=== PATIENT | female | born 1955 | race Caucasian/White ===

== ENCOUNTER 2020-10-09 15:13 | Emergency (ER) | payer OTHER, SELFPAY ==
--- NOTE | ~2020-10-09 | XR_ITS ---
EXAMINATION: XR ribs LT 2V w CXR 2V INDICATION: Left chest pain TECHNIQUE: PA and lateral views of the chest and 3 views of the left ribs were obtained. COMPARISON: 07/24/2014 FINDINGS: Calcified pulmonary nodules and calcified left hilar and mediastinal lymph nodes are consis tent with old granulomatous disease. The lungs are free of acute opacities. There is no pleural effus ion or pneumothorax. Moderate thoracic spondylosis is noted. The cardiomediastinal silhouette is norm al. No displaced rib fracture is identified. Punctate calcifications in the left upper quadrant likel y reflect old granulomatous disease of the spleen. IMPRESSION: 1. No acute cardiopulmonary abnormality or evidence of displaced rib fracture. Reviewed, dictated and finalized at location A. 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
[2020-10-09 15:39] VITALS: BP 136/74; PULSE 55; RESP 20; TEMP 36.7; O2SAT 99
[2020-10-09] MEDS: KETOROLAC (*BKC) 60 MG/2 ML VIAL IM (16:03)
--- NOTE | 2020-10-09 16:52 | ED.GENADULT ---
HPI - General Adult General Chief complaint: Unspecified Stated complaint: abdominal pain after fall Time Seen by Provider: 10/09/20 15:45 Source: patient Mode of arrival: ambulatory Limitations: no limitations History of Present Illness HPI narrative: Patient states she has had pain in her left side, under her breast since she fell a few days ago. This has been worse when she takes a deep breath. She comes in because she is tender to touch at that area, moderately severe pain that and is ongoing, so she wishes to be evaluated for this. Radiation: non-radiation Quality: stabbing Pain Consistency: constant Relieving factors: none Exacerbating factors: none Related Data Home Medications Medication Instructions Recorded Confirmed aspirin 325 mg PO HS 10/09/20 10/09/20 calcium 1,200 mg PO DAILY 10/09/20 10/09/20 citalopram [Celexa] 20 mg PO HS 10/09/20 10/09/20 diphenhydramine HCl [Allergy 25 mg PO BID 10/09/20 10/09/20 Medicine] insulin glargine [Lantus Solostar 60 unit SUBCUT BID 10/09/20 10/09/20 U-100 Insulin] levothyroxine [Synthroid] 137 mcg PO DAILY 10/09/20 10/09/20 lisinopril 5 mg PO HS 10/09/20 10/09/20 metformin 500 mg PO DAILY 10/09/20 10/09/20 metoprolol tartrate 25 mg PO BID 10/09/20 10/09/20 omeprazole 20 mg PO BID 10/09/20 10/09/20 simvastatin 40 mg PO HS 10/09/20 10/09/20 venlafaxine [Effexor XR] 150 mg PO HS 10/09/20 10/09/20 Allergies Allergy/AdvReac Type Severity Reaction Status Date / Time Sulfa (Sulfonamide Allergy Hives Verified 10/09/20 15:51 Antibiotics) Review of Systems Constitutional: Constitutional: Reports no additional constitutional complaints Eyes: Eyes: Reports no additional eye complaints ENT: Reports system reviewed and no additional complaints, except as documented Cardiovascular: Cardiovascular: Reports no additional cardiovascular complaints Respiratory: Respiratory: Reports no additional respiratory complaints Gastrointestinal: Gastrointestinal: Reports no additional gastrointestinal complaints Genitourinary: Genitourinary: Reports no additional female genitourinary complaints Musculoskeletal: Musculoskeletal: Reports no additional musculoskeletal complaints Integumentary/Breasts: Skin/Breast: Reports system reviewed and no additional complaints, except as docu Neurologic: Reports system reviewed and no additional complaints, except as documented Psychiatric: Psychiatric: Reports no additional psychiatric complaints Endocrine: Endocrine: Reports no additional endocrine complaints Hematologic/Lymphatic: Hematologic/Lymphatic: Reports no additional hematologic/lymphatic complaints Allergic/Immunologic: Allergic/Immunologic: Reports no additional allergic/immunologic complaints PMFSH Social History Social History Smoking status: Never smoker Gender identity (if verbalized by the patient): Female Exam Const: General: no acute distress Nutritional Appearance: well nourished and obese Orientation/consciousness: patient oriented x3 HENMT: Head: normal to inspection Face and sinus: normal facial exam Eyes: Conjunctivae: conjunctivae normal Neck: Neck: normal visual inspection Chest: Chest palpation & inspection: normal inspection of the chest Other: Left chest area where she complains of pain is tender to touch Resp: Effort & Inspection: normal respiratory effort Auscultation: clear to auscultation bilaterally Cardio: Rate: regular rate Rhythm: regular rhythm GI: GI Palp: Yes Soft to palpation Auscultation: normal bowel sounds : External Female Exam: normal external appearance Skin: General skin exam: normal color Neuro: General: patient oriented x3 and moves all extremities Speech: normal speech Extrem: General: normal to inspection Psych: Appearance: grossly normal Mental Status: mental status grossly normal Thought content: Yes Normal thought content present Cours
[2020-10-09 17:25] VITALS: PULSE 55; RESP 20; O2SAT 98
== END 2020-10-09 17:27 | disposition home or self-care (01) ==
PROVIDERS: Emergency Provider Emergency Medicine; PCP Internal Medicine Infectious Disease
DX: R07.89 Other chest pain (principal)
CPT/HCPCS: 71046; 71100; 96372; 99283; J1885

== ENCOUNTER 2021-11-20 11:33 | Outpatient (CLI) | payer OTHER, MEDICAID, SELFPAY ==
--- NOTE | 2021-11-20 11:43 | ECG_ITS ---
Measurements Intervals [place] Rate: 47 P: 32 ND: 169 QRS: -26 QRSD: 78 T: 64 QT: 447 QTc: 399 Interpretive Statements SINUS BRADYCARDIA EARLY PRECORDIAL R/S TRANSITION MINIMAL Q WAVES- HIGH LATERAL LEADS BASELINE WANDER- I, II, III ABNORMAL ECG Electronically Signed On 11-20-2021 12:48:46 LICENSED CLUB MANAGER by Jason Hughes D.O.
== END 2021-11-20 11:34 | disposition home or self-care (01) ==
PROVIDERS: PCP Internal Medicine Infectious Disease; Visit Provider Nurse Practitioner
DX: E11.9 Type 2 diabetes mellitus without complications (principal); K43.2 Incisional hernia without obstruction or gangrene; E66.9 Obesity, unspecified; R94.31 Abnormal electrocardiogram [ECG] [EKG]
CPT/HCPCS: 93005

== ENCOUNTER 2022-01-04 09:20 | Outpatient (CLI) | payer OTHER, MEDICAID, SELFPAY ==
[2022-01-04 09:52] LABS: Anion Gap 6 mmol/L (8-16); Blood Urea Nitrogen 17 mg/dL (7-17); Calcium 9.3 mg/dL (8.4-10.2); Carbon Dioxide 28 mmol/L (22-30); Chloride 102 mmol/L (98-107); Estimated Glomerular Filt Rate > 60; Glucose 137 mg/dL (65-110); Potassium 4.8 mmol/L (3.4-5.0); Sodium 136 mmol/L (137-145)
== END 2022-01-04 09:21 | disposition home or self-care (01) ==
LOC: ANHSURGERY 09:26
PROVIDERS: Anesthesiology; PCP Internal Medicine Infectious Disease; Visit Provider Surgery
DX: Z01.812 Encounter for preprocedural laboratory examination (principal); E11.9 Type 2 diabetes mellitus without complications
CPT/HCPCS: 36415; 80048

== ENCOUNTER 2022-01-08 00:32 | Day surgery (SDC) | payer OTHER, MEDICAID, SELFPAY ==
[2022-01-02 12:37] VITALS: BMI 36.7
--- NOTE | 2022-01-02 12:56 | PC.NURSE ---
Report to the Outpatient Waiting Room, entrance under the green pavilion located off [facility], at time __8:00AM on date __01/08/22 . OR Time: __10:00AM . - You and your visitor will be asked a series of questions to screen for COVID 19 for your protection. - A mask is required within the hospital. Preoperative COVID Testing Requirements: No COVID Test needed if: (proof is required; if not received patient will have Rapid Test prior to entry) - Patient has received COVID Vaccine at least 14 days prior to procedure date or - Patient has positive COVID test result within last 90 days of surgery date. COVID Test needed if above criteria is not met If not COVID vaccinated a COVID test must be conducted within 72 hours of surgery and patient is asked to isolate self from time of testing until procedure. You will go to the [facility] for your COVID testing. The [facility] is located at the corner of [address] [facility]. You will only be called if COVID results are positive and your surgeon may reschedule your elective surgery date. Patients may have clear liquids (water, carbonated beverages, clear teas, apple juice) until 3 hours prior to surgery with a maximum of 20 ounces. - No food from midnight until time of surgery - Infants may have breast milk until 4 hours before surgery, infant formula 6 hours prior to surgery. - Children will be allowed to drink immediately following surgery. If applicable, please bring a bottle or sippy cup to assist with drinking. Juice, water, soda, and popsicles are readily available. For infants on formula, please bring formula the day of surgery. Pacifiers are allowed. Take the following medications with a SIP of water the morning of surgery: ___LEVOTHYROXINE, METOPROLOL Medications to discontinue per physician DECREASE 325MG ASPIRIN TO 81MG 5 DAYS PRE-OP(01/03/22); HOLD VITAMINS/SUPPLEMENTS 3 DAYS PRE-OP (01/05) Date to take last dose Please no make-up, nail mosotho, hairspray, perfume, deodorant, or body powder the day of surgery. No jewelry (including any body piercings) or valuables the day of surgery, leave them at home. Please take a shower or bath the night before, or the morning of, surgery with an antibacterial soap. Wear comfortable, loose fitting clothing. Children are encouraged to wear pajamas. - Jewelry must be removed prior to entering the operating room. Rings and piercings that are not removed may be cut off. - The hospital will not accept responsibility for valuables. - Please leave all valuables, including medications, at home the day of surgery. HIBICLENS SHOWER MORNING OF SURGERY PER DR FARNSWORTH If you are going home after surgery, a licensed food mobile driver must drive you home. - NO public transportation without another adult. - We recommend that an adult stay with you for 24 hours following discharge. - We also recommend that you do not drive, make important decision, drink alcoholic beverages, or take any drugs that were not prescribed by your health care provider for at least 24 hours after your discharge time. For Pediatric surgeries, we recommend two adults accompany the child home (only one inside the building at this time). One visitor will be allowed to accompany the patient into the hospital. Patients visitor will be instructed to remain with patient at all times or leave the building. We will allow the visitor to come back to the postoperative area when patient is ready. Follow any additional instructions given to you from your surgeon. Telephone instructions given to ___PATIENT and asked if any additional questions and then verbalized understanding. Patient advised to call surgeon office or pre surgery nurse liaison [phone] if any additional questions.
--- NOTE | 2022-01-05 10:17 | WPDANESEPPF ---
Anes - Initial Pre Proc Eval Procedure: Operation Date: 01/08/22 10:30 Proposed Procedures p Laparoscopic Repair Ventral Incisional Hernia with Mesh, Possible Open - Ulises Arce MD Date/Time: 01/05/22 10:17 Surgeon: Ulises Arce MD Pre Op Diagnosis: ventral incisional hernia Patient Data Age: 66 Gender: F Height: 1.6 m Weight: 94 kg Allergies Allergy/AdvReac Type Severity Reaction Status Date / Time Sulfa (Sulfonamide Allergy Hives Verified 01/08/22 10:22 Antibiotics) codeine AdvReac Intermediate Nausea Verified 01/08/22 10:22 Home Medications Medication Instructions Recorded Confirmed Type aspirin 325 mg PO HS 10/09/20 01/08/22 History calcium 1,200 mg PO DAILY 10/09/20 01/08/22 History citalopram [Celexa] 20 mg PO HS 10/09/20 01/08/22 History diphenhydramine HCl [Allergy 25 mg PO BID 10/09/20 01/08/22 History Medicine] lisinopril 5 mg PO HS 10/09/20 01/08/22 History metformin 500 mg PO BID 10/09/20 01/08/22 History metoprolol tartrate 25 mg PO BID 10/09/20 01/08/22 History omeprazole 20 mg PO BID 10/09/20 01/08/22 History simvastatin 40 mg PO HS 10/09/20 01/08/22 History venlafaxine [Effexor XR] 150 mg PO HS 10/09/20 01/08/22 History aspirin [Aspir-81] 81 mg PO DAILY 01/02/22 01/08/22 History insulin glargine-lixisenatide 60 ml SUBCUT QAM 01/02/22 01/08/22 History [Soliqua 100/33] levothyroxine [Synthroid] 125 mcg PO QAM 01/02/22 01/08/22 History Patient hx anesthesia problems: other (history of difficult intubation) Family hx anesthesia problems: none Results Review: All pre-operative results and documents have been reviewed as part of the pre-operative evaluation. [facility] Past Medical History Medical History (Updated 01/05/22 @ 10:18 by Mmeo Bourne DO) Depression Diabetes type 2, controlled Heart attack Hiatal hernia High cholesterol Hypertension CANDICE (obstructive sleep apnea) Thyroid condition Surgical History Surgical History H/O section H/O dilation and curettage H/O hernia repair H/O rotator cuff surgery History of cholecystectomy History of foot surgery History of tonsillectomy Hx of appendectomy Status post osteotomy Social History Social History Smoking status: Never smoker Alcohol intake: current Alcohol use details: RARELY Substance use: never Living arrangements: with family Additional living arrangements comments: SPOUSE Gender identity (if verbalized by the patient): Female Spiritual care concerns: No Anes - Eval Final PreProcedure Day of Procedure 01/05/22 10:17 Patient weight: obese Heart: regular rate and rhythm Lungs: clear to auscultation and normal air movement Airway: Mallampati scale class III and other (history of difficult intubation) Neurological: alert and oriented Last oral intake: >/= 8 hours ASA classification: III Emergent: no Anesthetic plan: proceed Anesthesia type and monitoring: general ETT and standard monitoring Results Review: All pre-operative results and documents have been reviewed as part of the pre-operative evaluation. Informed Consent: The patient's anesthetic plan and its attendant risks and benefits were discussed with the patient/family/POA. Questions were solicited and answers provided to the satisfaction of the patient/family/POA.
--- NOTE | 2022-01-07 19:11 | PM.HPGS ---
History of Present Illness History of Present Illness Consent: Risks, benefits, and alternatives of a laparoscopic repair of a ventral incisional hernia with mesh have been discussed and questions answered. Patient agrees to proceed with procedure. Chief complaint: ventral incisional hernia Narrative: Radha Zafar is a 66 year old white female that presented recently to the office at the request of Dr Islas for an evaluation of a abdominal hernia. The patient reports that she has known she has had a hernia for years. She reports she had a hernia repair in 2017 but the current concerning hernia was not repaired because it was small and asymptomatic. She reports that the larger hernia repaired in 2017 she believes was just repaired with sutures and not mesh. Prior to having the 2017 hernia repair she had a laparoscopic cholecystectomy completed in [facility]. She believes that surgery was 5-10 years ago. She reports that she also has had her appendix removed when she was in 8th grade. She believes this was ruptured. She also reports she had a with a vertical midline incision done > 30 years ago. Patient reports that she has been having pain at the site of her current upper abd. hernia and has been nauseous recently and just sick to her stomach frequently. She believes these symptoms are due to the hernia. Patient underwent a CT scan of the abdomen and pelvis with contrast on 11/09/21 when at the ED at [facility] in [place] that showed a 4.1 cm x 2.1 cm midline ventral hernia in the upper abdomen containing fat. There was noted to be some inflammatory stranding of the fat within the hernia suggesting edema and therefore incarceration of the fat. Review of Systems Review of Systems: Const All systems reviewed & are unremarkable except as noted in HPI and below Reports no additional complaints, Denies frequent falls, Denies headache(s) and Reports other (no recent weight change, no fever) Eyes Denies blurry vision, Denies itchy eyes, Denies photophobia and Denies spots in vision ENT Reports Normal hearing present, Denies headache(s), Denies hoarseness, Denies lip swelling and Denies sore throat Card Denies chest pain at rest, Denies irregular heart rhythm and Denies dyspnea Resp Denies chest congestion, Denies cough and Denies dyspnea GI Reports abdominal pain, Reports heartburn and Reports nausea, Reports multiple previous abdominal surgeries. Musc Reports other (arthritis) Skin/Breast Denies new lesions, Denies rash and Denies wounds Neuro Reports Normal hearing present, Denies abnormal gait, Denies confusion, Denies frequent falls, Denies headache(s), Denies convulsions and Denies seizure-like activity Psych Denies confusion and Denies depression Endo Denies cold intolerance and Denies heat intolerance Lee/Lymph Denies easy bleeding, Denies easy bruising and Denies lymphadenopathy Aller/Immun Denies itchy eyes and Denies lip swelling PMFSH Past Medical History Medical History (Updated 01/05/22 @ 10:18 by Memo Bourne DO) Depression Diabetes type 2, controlled Heart attack Hiatal hernia High cholesterol Hypertension CANDICE (obstructive sleep apnea) Thyroid condition Surgical History Surgical History H/O section H/O dilation and curettage H/O hernia repair H/O rotator cuff surgery History of cholecystectomy History of foot surgery History of tonsillectomy Hx of appendectomy Status post osteotomy Social History Social History Smoking status: Never smoker Alcohol intake: current Alcohol use details: RARELY Substance use: never Living arrangements: with family Additional living arrangements comments: SPOUSE Gender identity (if verbalized by the patient): Female Spiritual care concerns: No Meds Home Medications and Allergies Home Medications Me
[2022-01-08] VITALS (20 sets, daily range): BP systolic 115–153; BP diastolic 47–90; PULSE 55–95; RESP 16–20; TEMP 36.2–37.7; O2SAT 92–99; BMI 35.6
[2022-01-08] MEDS: ACETAMINOPHEN 500 MG TABLET 1000 MG PO (10:13)
[2022-01-08 10:14] LABS: Glucose Point of Care 81 mg/dl (65-105)
[2022-01-08] MEDS: LACTATED RINGERS 1,000 ML 30 ML IV CONT ×3 (10:16→15:31)
[2022-01-08] MEDS: KETOROLAC 15 MG/ML VIAL (*BKC) IV PUSH (10:16)
--- NOTE | 2022-01-08 11:17 | WPDHPUPDATE1 ---
History and Physical Update Update Date/Time: 01/08/22 11:17 History and Physical has been reviewed, including an updated exam of the patient. There are NO changes in the patient's condition. Risks, benefits, and alternatives have been discussed and questions answered. Patient agrees to proceed with procedure.
--- NOTE | 2022-01-08 11:37 | SUR.PREOP ---
OFFERED RESTROOM TO PT, SHE REFUSED. GABRIELA MACHINE SEWER NOTIFIED.
[2022-01-08] MEDS: ceFAZolin 2 GM/D5W 50 ML 2 GM/50 ML BAG IVPB (11:42)
[2022-01-08] MEDS: BUPIVACAINE/EPINEPHRINE 0.25% 10 ML VIAL 30 ML INFILTRATE (12:18)
[2022-01-08 13:47] LABS: Glucose Point of Care 163 mg/dl (65-105)
--- NOTE | 2022-01-08 14:15 | W.PM.PROC2 ---
Procedure Note - Detailed Date of Procedure 01/08/22 Pre-op Diagnosis ventral incisional hernia upper mid abdomen Post-op Diagnosis Same Procedure Performed Laparoscopic ventral incisionall hernia repair with mesh Surgeon Ulises Arce MD [employer] HALE, OR design assistant Anesthesia General Indications Patient having increasing abdominal pain in the epigastrium where she has a enlarging bulge. Findings There was an approximately 2.5 x 3.5 cm fascial defect half-way between the umbilicus and the xiphoid in the upper mid abdomen. Description of Procedure DESCRIPTION OF PROCEDURE: The patient was placed in the supine position on the operative table and after induction of adequate general endotracheal anesthesia by Michael Anesthesia, the entire abdomen was prepped and draped in usual sterile fashion and the head placed slightly up. An Ioban drape was placed over the exposed part of the abdomen and used to prevent contact of the mesh with the skin during this clean case. A time-out was performed with the surgery team confirming patient and site of surgery. Following this, local anesthetic was placed in a spot selected about two finger-breadths below the costal margin on the left and a small incision made after instilling the local anesthetic using 0.25% Marcaine with epinephrine. Following this, a Veress needle technique using the water drop test was completed. Using 2 towel clips on the skin, I carefully elevated the skin and then passed the Veress needle into the abdomen and we could see that the saline dropped through the Veress needle easily. CO2 gas was connected and the abdomen was insufflated to 15 mm Hg pressure with CO2 gas. Following this, the 0 degree 5 mm laparoscope was placed inside a 5 mm trocar, which was carefully twisted into the abdomen without difficulty, seeing a open pneumoperitoneum as we entered. Then, the trocar was removed, the sleeve confirmed to be nicely within the abdomen, and we carefully inspected the anterior abdomen. Careful inspection of the abdomen revealed an inability to see the inguinal areas because of the patients size and previous lower abdominal surgery and the resultant adhesions. A defect in the fascia under the epigastric port site scar was not readily visible because of the incarceration of either omental or epiploic fat off the transverse colon that appeared to be going up into the about 3 cm in size defect. After placing a 12 mm port in the left lower quadrant under direct vision with the laparoscope, we were able to dissect and expose an estimated 3 cm defect that was confirmed to be pretty much directly under the scar form one of her prevouus port sites. There was some incarceration of omentum or a small piece of appendices epiploica off the transverse colon was up in the hernia defect. This was pulled back into the abdomen as we did the dissection. There were also some omental adhesions to the underside of a piece of mesh that was lower in the central abdomen under the umbilicus and under her lower midline scar. There was also some fat along the midline extending up to the Falciform ligament. I took this down and removed this preperitoneal fat from around the now visible fascial defect. We had a little bleeding from this, and lost about 5 mL of blood during the laparoscopic dissection. Following this, we carefully planned by measuring the defect. Our mesh, a circular 11 cm piece of Venta-lite mesh was chosen, so that we would have 4 cm of overlap in all directions over the circular upper midline fascial defect. Following this, the Ventra-lite Echo II mesh hernia system was rolled and this was inserted through the LLQ 12 mm port after rolling it to protect the absorbable covering on the downside of the mesh. I then used the suture passer after making a small opening in the epigastric skin directly over the above described fascial defect with an 11 blade knife after placing local an
[2022-01-08] MEDS: fentaNYL CITRATE INJ (*CRX) 100 MCG/2 ML VIAL 25 MCG IV PUSH ×3 (15:25→15:35)
--- NOTE | 2022-01-08 15:53 | SUR.PHASEII ---
PT PUSHED CALL LIGHT, CAME IN ROOM AND SAW PT SHAKING ABNORMALLY. PT ANSWERED QUESTIONS APPROPRIATELY AND KNEW HER WHERE ABOUTS. ANESTESIA CAME TO EVALUATE. RECOMENDED SMALL 12.5 DOSES OF FENTANYL AND DISTRACTION THERAPY.
[2022-01-08 16:18] LABS: Glucose Point of Care 204 mg/dl (65-105)
[2022-01-08] MEDS: HYDROcodone/acetaminophen (*CRX) 7.5-325 MG TABLET 1 TAB PO (18:05)
--- NOTE | 2022-01-08 18:52 | ADMGEN ---
This patient, Radha Zafar, was admitted to Medical Room 344-01. Patient/family oriented to hospital policies and general routines including ID bracelet, bed and alarms, visiting hours, pain management, procedures, bathroom and other care routines, personal items, smoking policy, room service/diet, and visiting hours. Information on how to activate the Rapid Response Team has been discussed. Patient/Family are encouraged to report perceived risks to care and to ask questions if they do not understand what they are told or what they should do.
[2022-01-08] MEDS: LACTATED RINGERS 1,000 ML 100 ML IV CONT (18:55)
[2022-01-08 19:34] LABS: Basophils Percent Auto 0.2 % (0.2-1.2); Eosinophils Percent Auto 0.1 % (0-4.4); Hematocrit 36.3 % (37.0-47.0); Hemoglobin 11.4 g/dL (12.0-15.0); Immature Granulocyte Absolute 0.04 K/mm3 (0.00-0.031); Immature Granulocyte Percent A 0.4 % (0-0.5); Lymphocytes Absolute Auto 0.53 K/mm3 (0.9-3.2); Lymphocytes Percent Auto 5.1 % (18.3-44.2); Mean Corpuscular HGB Conc 31.4 g/dl (32-36); Mean Corpuscular Hemoglobin 26.4 pg (26-34); Mean Platelet Volume 11.2 fl (7.4-10.4); Monocytes Absolute Auto 0.3 K/mm3 (0.1-0.6); Monocytes Percent Auto 2.6 % (2.6-8.5); Neutrophils Absolute Auto 9.5 K/mm3 (1.3-6.7); Neutrophils Percent Auto 91.6 % (45.5-73.1); Platelet Count Result 287 k/mm3 (150-375); Red Blood Count 4.32 M/mm3 (4.2-5.4); Red Cell Distribution Width 14.6 % (11.5-14.5); White Blood Count 10.4 K/mm3 (4.5-10.0)
[2022-01-08 19:46] LABS: Alanine Aminotransferase 23 U/L (4-35); Albumin Level 3.8 g/dL (3.5-5.1); Alkaline Phosphatase 110 U/L (38-126); Anion Gap 7 mmol/L (8-16); Aspartate Amino Transferase 34 U/L (14-36); Bilirubin,Total 0.4 mg/dL (0.2-1.3); Blood Urea Nitrogen 16 mg/dL (7-17); Calcium 8.8 mg/dL (8.4-10.2); Carbon Dioxide 27 mmol/L (22-30); Chloride 100 mmol/L (98-107); Estimated CRCL calculation 74 ml/min; Estimated Glomerular Filt Rate > 60; Glucose 251 mg/dL (65-110); Potassium 5.3 mmol/L (3.4-5.0); Sodium 134 mmol/L (137-145)
[2022-01-08 19:48] LABS: Glucose Point of Care 257 mg/dl (65-105)
--- NOTE | 2022-01-08 20:38 | PM.IMHP ---
H&P: HPI History of Present Illness Date/Time: 01/08/22 20:38 [facility] Past Medical History Medical History Depression Diabetes type 2, controlled Heart attack Hiatal hernia High cholesterol Hypertension CANDICE (obstructive sleep apnea) Thyroid condition Surgical History Surgical History H/O section H/O dilation and curettage H/O hernia repair H/O rotator cuff surgery History of cholecystectomy History of foot surgery History of tonsillectomy Hx of appendectomy Status post osteotomy Social History Social History Smoking status: Never smoker Alcohol intake: current Alcohol use details: RARELY Substance use: never Substance use type: does not use Living arrangements: with family Additional living arrangements comments: SPOUSE Gender identity (if verbalized by the patient): Female Spiritual care concerns: No Meds Home Medications and Allergies Home Medications Medication Instructions Recorded Confirmed Type aspirin 325 mg PO HS 10/09/20 01/08/22 History calcium 1,200 mg PO DAILY 10/09/20 01/08/22 History citalopram [Celexa] 20 mg PO HS 10/09/20 01/08/22 History diphenhydramine HCl [Allergy 25 mg PO BID 10/09/20 01/08/22 History Medicine] lisinopril 5 mg PO HS 10/09/20 01/08/22 History metformin 500 mg PO BID 10/09/20 01/08/22 History metoprolol tartrate 25 mg PO BID 10/09/20 01/08/22 History omeprazole 20 mg PO BID 10/09/20 01/08/22 History simvastatin 40 mg PO HS 10/09/20 01/08/22 History venlafaxine [Effexor XR] 150 mg PO HS 10/09/20 01/08/22 History Soliqua 100/33 60 ml SUBCUT QAM 01/02/22 01/08/22 History aspirin 81 mg PO DAILY 01/02/22 01/08/22 History levothyroxine [Synthroid] 125 mcg PO QAM 01/02/22 01/08/22 History hydrocodone-acetaminophen 1 tablet PO Q6H PRN #30 tablet 01/08/22 Rx Allergies Allergy/AdvReac Type Severity Reaction Status Date / Time Sulfa (Sulfonamide Allergy Hives Verified 01/08/22 10:22 Antibiotics) codeine AdvReac Intermediate Nausea Verified 01/08/22 10:22 Vital Signs Vital Signs - 24 hr 01/08/22 10:25 01/08/22 13:39 01/08/22 13:50 Temperature 97.9 F 98.1 F Pulse Rate 55 L 95 81 Respiratory Rate 16 18 18 Blood Pressure 132/47 L 138/52 L 134/65 Pulse Oximetry 99 96 95 01/08/22 14:05 01/08/22 14:15 01/08/22 14:30 Temperature Pulse Rate 76 76 72 Respiratory Rate 20 18 18 Blood Pressure 136/53 L 130/55 L 131/54 L Pulse Oximetry 94 94 93 01/08/22 14:45 01/08/22 14:55 01/08/22 14:58 Temperature Pulse Rate 71 71 71 Respiratory Rate 18 18 18 Blood Pressure 120/48 L 124/51 L 147/50 H Pulse Oximetry 93 92 95 01/08/22 15:28 01/08/22 15:58 01/08/22 16:28 Temperature Pulse Rate 74 72 71 Respiratory Rate 18 18 18 Blood Pressure 153/88 H 129/59 L 152/65 H Pulse Oximetry 97 01/08/22 16:58 01/08/22 17:20 01/08/22 17:50 Temperature Pulse Rate 79 65 59 L Respiratory Rate 18 18 18 Blood Pressure 134/75 128/52 L 149/55 H Pulse Oximetry 97 97 01/08/22 18:20 01/08/22 18:35 01/08/22 18:50 Temperature 98.0 F 97.8 F Pulse Rate 61 60 65 Respiratory Rate 18 16 16 Blood Pressure 124/55 L 126/48 L 125/49 L Pulse Oximetry 96 96 97 Exam Narrative: PHYSICAL EXAM: WEIGHT 91.3 kg BMI 35.7 General: HEENT: Respiratory: Cardiovascular: Gastrointestinal: Skin: Musculoskeletal: Neurological: Psychiatric: : Hematologic/lymphatic: H&P: Results Labs Labs: Laboratory Tests 01/08/22 19:08 01/08/22 19:08 01/08/22 01/08/22 01/08/22 10:10 13:45 16:16 WBC RBC Hgb Hct MCV MCH MCHC RDW Plt Count MPV Immature Gran % (Auto) Neut % (Auto) Lymph % (Auto) [place] % (Auto) Eos % (Auto) Baso % (Auto) Lymph # (Auto) [place] # (Auto) Eos # (Auto)
[2022-01-08] MEDS: ENOXAPARIN 30 MG/0.3 ML SYRINGE SUB-Q (21:05)
[2022-01-08] MEDS: VENLAFAXINE HCL XR 75 MG CAP.ER.24H 150 MG PO (21:05)
[2022-01-08] MEDS: SENNA/DOCUSATE SODIUM TABLET 2 TAB PO (21:05)
[2022-01-08] MEDS: CITALOPRAM HYDROBROMIDE 20 MG TABLET PO (21:05)
[2022-01-08] MEDS: INSULIN ASPART (*BKC) 100 UNITS/ML SUB-Q (21:34)
[2022-01-08] MEDS: MORPHINE SULFATE (*CRX) 2 MG/ML INJ IV PUSH (21:35)
[2022-01-08 21:40] LABS: Glucose Point of Care 263 mg/dl (65-105)
[2022-01-09 01:22] LABS: Glucose Point of Care 185 mg/dl (65-105)
[2022-01-09] MEDS: HYDROcodone/acetaminophen (*CRX) 7.5-325 MG TABLET 1 TAB PO ×3 (01:29→11:27)
--- NOTE | 2022-01-09 03:39 | PM.IMCN ---
Assessment and Plan Assessment and plan (1) S/P ventral herniorrhaphy: Onset Date: 01/08/22 Code(s): Z98.890 - Other specified postprocedural states; Z87.19 - Personal history of other diseases of the digestive system Status: Acute Assessment and Plan: Postop pain management per primary service. The patient is tolerating a full liquid diet. 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 The patient insulin was on hold preop. Will give the patient small dose of NovoLog this evening and repeat Accu-Chek in 4 hours. With decreased appetite postop will subsequently decrease the patient's long-acting insulin to 35 units. Moderate sliding scale insulin with Accu-Cheks a.c. HS has been ordered. Hypoglycemia protocol his available. (3) Anxiety disorder: Qualifiers: Anxiety disorder type: generalized anxiety disorder Qualified Code(s): F41.1 - Generalized anxiety disorder Code(s): F41.9 - Anxiety disorder, unspecified Status: Acute Assessment and Plan: Patient is having abnormal movements of bilateral shoulders arms and head and neck. The patient is able to speak throughout these movements and movements appear deliberate. If patient is distracted these movements stop. When I told the patient that these movements were psychogenic and due to stress reaction from her surgery she did not have any further movements throughout the course of my interview. HPI Data of Consult Consult date: 01/08/22 Requesting Physician: Ulises Arce MD Primary Care Provider: Jett IslasMD Consult Narrative Narrative: Radha Zafar is a 66 year old female with a past medical history of depression, anxiety, hypothyroidism, diabetes, and hypertension who presented to the hospital for elective laparoscopic ventral hernia repair with mesh placement. The patient has had the known hernia other for many years but had had increasing abdominal pain and an enlarging bulge. At the time of surgery she had a 2.5 x 3.5 cm fascial defect care home between the umbilicus and the xiphoid in the upper abdomen. It appeared to be associated to a prior port site from 1 of her other surgeries. There was some incarceration of the omental fat. The defect was repaired with her 11 cm of mesh. The patient tolerated the procedure well and had minimal blood loss. However in the postop recovery area the patient was having irregular movements of her head neck and shoulders. The patient was able to speak throughout her episodes of limb movements and head movements. At times when the patient was distracted she was not having any of these movements. The patient was also reporting uncontrolled pain postop in told me her pain does 11/10 in intensity. The patient did not appear to be in acute distress. She did have some mild abdominal distension exam but has already been passing gas. Her incisions are clean dry and intact with minimal surrounding bruising. She has been voiding without difficulty. Her glucoses were modestly elevated in the 260s but she did not take any of her insulin prior to surgery this morning. She denies any chest pain or shortness of breath. He has not had any nausea or vomiting has tolerated eating ice cream, pudding, regular soda and water. Review of Systems Review of Systems: 12 systems were reviewed with pertinent positives and negatives per HPI. Except as documented in the HPI, all other systems were reviewed and are negative.
[2022-01-09 05:48] LABS: Hematocrit 33.5 % (37.0-47.0); Hemoglobin 10.5 g/dL (12.0-15.0); Mean Corpuscular HGB Conc 31.3 g/dl (32-36); Mean Corpuscular Hemoglobin 26.3 pg (26-34); Mean Corpuscular Volume 83.8 fl (80-100); Mean Platelet Volume 11.2 fl (7.4-10.4); Platelet Count Result 287 k/mm3 (150-375); Red Cell Distribution Width 14.4 % (11.5-14.5); White Blood Count 9.8 K/mm3 (4.5-10.0)
[2022-01-09 05:56] LABS: Anion Gap 2 mmol/L (8-16); Blood Urea Nitrogen 15 mg/dL (7-17); Calcium 8.9 mg/dL (8.4-10.2); Carbon Dioxide 29 mmol/L (22-30); Chloride 101 mmol/L (98-107); Estimated CRCL calculation 74 ml/min; Estimated Glomerular Filt Rate > 60; Glucose 144 mg/dL (65-110); Potassium 5.2 mmol/L (3.4-5.0); Sodium 132 mmol/L (137-145)
[2022-01-09] MEDS: LEVOTHYROXINE SODIUM 125 MCG TABLET PO (06:24)
[2022-01-09 07:43] LABS: Glucose Point of Care 131 mg/dl (65-105)
[2022-01-09 08:50] VITALS: PULSE 70
[2022-01-09] MEDS: ASPIRIN 81 MG ENTERIC TABLET PO (08:50)
[2022-01-09] MEDS: METOPROLOL TARTRATE 25 MG TABLET PO (08:50)
[2022-01-09] MEDS: ENOXAPARIN 30 MG/0.3 ML SYRINGE SUB-Q (08:50)
[2022-01-09] MEDS: INSULIN GLARGINE (*BKC) 100 UNITS/ML 35 UNITS SUB-Q (08:51)
[2022-01-09] MEDS: diphenhydrAMINE HCl CAP 25 MG CAPSULE PO (08:55)
[2022-01-09 08:58] VITALS: BP 126/55; PULSE 61; RESP 18; TEMP 36.1; O2SAT 97
--- NOTE | 2022-01-09 11:25 | WPDANESPN ---
Anes - Prog Note Post-Op Date/Time: 01/09/22 11:25 Cardiovascular status: normal Respiratory status: normal Airway patency: baseline Mental status: baseline Post-Op hydration status: normal Vital Signs: Last Vital Signs Temp 96.9 F L 01/09/22 08:58 Pulse 61 01/09/22 08:58 Resp 18 01/09/22 08:58 BP 126/55 L 01/09/22 08:58 Pulse Ox 97 01/09/22 08:58 Pain Score (VAS): 10 I/O: Intake & Output 01/08/22 01/09/22 01/09/22 23:59 07:59 15:59 Intake Total 300 1500 240 Output Total 1500 Balance 300 0 240 Laboratory Tests 01/09/22 05:20 01/09/22 05:20 01/08/22 01/08/22 01/08/22 13:45 16:16 19:08 WBC RBC Hgb Hct MCV MCH MCHC RDW Plt Count MPV Immature Gran % (Auto) Neut % (Auto) Lymph % (Auto) [place] % (Auto) Eos % (Auto) Baso % (Auto) Lymph # (Auto) [place] # (Auto) Eos # (Auto) Baso # (Auto) Abs Immat Gran (auto) Absolute Neuts (auto) Absolute Nucleated RBC Nucleated RBC % Sodium 134 L Potassium 5.3 H Chloride 100 Carbon Dioxide 27 Anion Gap 7 L BUN 16 Creatinine 0.70 Estim Creat Clear Calc 74 Estimated GFR > 60 Glucose 251 H POC Capillary Glucose 163 H 204 H Calcium 8.8 Total Bilirubin 0.4 AST 34 ALT 23 Alkaline Phosphatase 110 Total Protein 7.0 Albumin 3.8 01/08/22 01/08/22 01/08/22 19:08 19:40 21:29 WBC 10.4 H RBC 4.32 Hgb 11.4 L Hct 36.3 L MCV 84.0 MCH 26.4 MCHC 31.4 L RDW 14.6 H Plt Count 287 MPV 11.2 H Immature Gran % (Auto) 0.4 Neut % (Auto) 91.6 H Lymph % (Auto) 5.1 L [place] % (Auto) 2.6 Eos % (Auto) 0.1 Baso % (Auto) 0.2 Lymph # (Auto) 0.53 L [place] # (Auto) 0.3 Eos # (Auto) 0.0 Baso # (Auto) 0.0 Abs Immat Gran (auto) 0.04 H Absolute Neuts (auto) 9.5 H Absolute Nucleated RBC 0.0 Nucleated RBC % 0.0 Sodium Potassium Chloride Carbon Dioxide Anion Gap BUN Creatinine Estim Creat Clear Calc Estimated GFR Glucose POC Capillary Glucose 257 H 263 H Calcium Total Bilirubin AST ALT Alkaline Phosphatase Total Protein Albumin 01/09/22 01/09/22 01/09/22 01:20 05:20 05:20 WBC 9.8 RBC 4.00 L Hgb 10.5 L Hct 33.5 L MCV 83.8 MCH 26.3 MCHC 31.3 L RDW 14.4 Plt Count 287 MPV 11.2 H Immature Gran % (Auto) Neut % (Auto) Lymph % (Auto) [place] % (Auto) Eos % (Auto) Baso % (Auto) Lymph # (Auto) [place] # (Auto) Eos # (Auto) Baso # (Auto) Abs Immat Gran (auto) Absolute Neuts (auto) Absolute Nucleated RBC Nucleated RBC % Sodium 132 L Potassium 5.2 H Chloride 101 Carbon Dioxide 29 Anion Gap 2 L BUN 15 Creatinine 0.70 Estim Creat Clear Calc 74 Estimated GFR > 60 Glucose 144 H POC Capillary Glucose 185 H Calcium 8.9 Total Bilirubin AST ALT Alkaline Phosphatase Total Protein Albumin 01/09/22 07:38 WBC RBC Hgb Hct MCV MCH MCHC RDW Plt Count MPV Immature Gran % (Auto) Neut % (Auto) Lymph % (Auto) [place] % (Auto) Eos % (Auto) Baso % (Auto) Lymph # (Auto) [place] # (Auto) Eos # (Auto) Baso # (Auto) Abs Immat Gran (auto) Absolute Neuts (auto) Absolute Nucleated RBC Nucleated RBC % Sodium Potassium Chloride Carbon Dioxide Anion Gap BUN Creatinine Estim Creat Clear Calc Estimated GFR Glucose POC Capillary Glucose 131 H Calcium Total Bilirubin AST ALT Alkaline Phosphatase Total Protein Albumin Post-procedural complaints: none Patient Feedback: Patient satisfied with anesthetic care. pt verbalized shaking episodes once up in chair after surgery. states had a repeat shaking episode last night but has felt better this morning with no recurance of shaking.
== END 2022-01-09 11:26 | disposition home or self-care (01) ==
LOC: ANHSURGERY 15:39 → ANH3MED 18:37
PROVIDERS: PCP Internal Medicine Infectious Disease; Visit Provider Surgery
PROC: (CPT 49654; principal; 2022-01-08 11:30)
DX: K43.2 Incisional hernia without obstruction or gangrene (principal); I10 Essential (primary) hypertension; E78.00 Pure hypercholesterolemia, unspecified; E11.9 Type 2 diabetes mellitus without complications; F32.9 Major depressive disorder, single episode, unspecified; I25.2 Old myocardial infarction; G47.33 Obstructive sleep apnea (adult) (pediatric); E07.9 Disorder of thyroid, unspecified; E66.9 Obesity, unspecified; Z68.35 Body mass index [BMI] 35.0-35.9, adult; Z79.82 Long term (current) use of aspirin; Z79.84 Long term (current) use of oral hypoglycemic drugs; Z79.4 Long term (current) use of insulin
CPT/HCPCS: 49654; 36415; 80048; 80053; 82948; 85025; 85027; A9270; C1781; J0330; J0360; J0690; J1100; J1650; J1815; J1885; J2250; J2270; J2405; J2704; J2710; J3010; J7120